=== PATIENT | male | born 1975 | race African-American/Black ===

== ENCOUNTER 2017-05-07 16:32 | Emergency (ER) | payer OTHER ==
[~2017-05-07] VITALS: Ht 185.4 cm; Wt 93.0 kg
[~2017-05-07 16:32] MED LIST: AMOXICILLIN500 M1 PO; AUGMENTIN 875875 MG PO; COLACE100 MG PO; FLONASE 0.05%50 MCG NASAL; MUCINEX TA600 MG/TA2 PO; NEXIUM40 MG PO; PHENERGAN 25 MG25 M1 PO; VALIUM5 MG PO; ZANTAC 150MG T150 M1 PO; ZOFRAN ODT4 MG PO
[2017-05-07] MEDS ORDERED: NORCO 5-325 TA1 EACH PO (17:14)
== END 2017-05-07 17:53 | disposition home or self-care (01) ==
LOC: ER 16:32
DX: S16.1XXA Strain of muscle, fascia and tendon at neck level, initial encounter (principal); M54.5 Low back pain; M54.6 Pain in thoracic spine; K21.9 Gastro-esophageal reflux disease without esophagitis; W18.39XA Other fall on same level, initial encounter; Y93.89 Activity, other specified; Y92.89 Other specified places as the place of occurrence of the external cause; Y99.0 Civilian activity done for income or pay